=== PATIENT | female | born 1990 | race Caucasian/White ===

== ENCOUNTER 2017-03-08 08:02 | Day surgery (SDC) | payer MEDICARE ==
[~2017-03-08 08:02] MED LIST: PROPOFOL INJ 200 MG/20 ML VIAL IV ONE
[2017-03-08] MEDS ORDERED: ONABOTULINUMTOXINA INJ/PF 100 UNIT SDV IM PRN (08:32)
[2017-03-08 10:43] VITALS: BP 103/66
--- NOTE | 2017-03-08 11:56 | Operative Report ---
Operative Report DATE OF SURGERY: 03/08/17 Operative Report: The risks benefits and alternatives of the procedure explained to the patient in detail and informed consent is obtained.A GIF Olympus video scope was inserted into the patient's mouth and hypopharynx ,the esophagus is identified intubated and insufflated, the scope was then advanced through the esophagus stomach and duodenum, retroflexion maneuver is done, the esophagus stomach and first and second portions of the duodenum examined PREOPERATIVE DIAGNOSIS: Gastroparesis, nausea and vomiting. POSTOPERATIVE DIAGNOSIS: Gastritis. Gastroparesis status post Botox injection 20 U/cc, total of 5 cc ,100 units OPERATION: EGD with submucosal injection. EGD with biopsy SURGEON: CHEY MORTENSEN ANESTHESIA: LMAC TISSUE REMOVED OR ALTERED: As noted above. COMPLICATIONS: None. ESTIMATED BLOOD LOSS: None. INTRAOPERATIVE FINDINGS: As described above. PROCEDURE: Patient tolerated procedure well. No immediate postprocedure complications are noted. Patient discharged in good condition. Discharge date 03/08/2017. Discharge diet: Regular. Discharge activity: Regular. 2-3 week follow-up to discuss findings. Patient is instructed call the office or proceed to the emergency room should there be any further problems or questions. We will wait on pathology.
== END 2017-03-08 10:45 | disposition home or self-care (01) ==
LOC: OROUT 08:02
PROVIDERS: ATTEND Internal Medicine Gastroenterology
PROC: 0DB68ZX Excision of Stomach, Via Natural or Artificial Opening Endoscopic, Diagnostic (ICD-10-PCS; principal; 2017-03-08 10:15)
PROC: 3E0G8GC Introduction of Other Therapeutic Substance into Upper GI, Via Natural or Artificial Opening Endoscopic (ICD-10-PCS; 2017-03-08 10:15)
DX: K31.84 Gastroparesis (principal); K29.70 Gastritis, unspecified, without bleeding; E03.9 Hypothyroidism, unspecified; F17.210 Nicotine dependence, cigarettes, uncomplicated; E27.1 Primary adrenocortical insufficiency; E23.2 Diabetes insipidus; Z88.1 Allergy status to other antibiotic agents
CPT/HCPCS: 43239; 81025; 88305 ×2; J2704; J0585; 43236; 740